=== PATIENT | male | born 1940 | race Caucasian/White ===

== ENCOUNTER 2016-04-22 17:50 | Emergency (ER) | payer MEDICARE, OTHER ==
[~2016-04-22] VITALS: Ht 172.7 cm; Wt 83.2 kg
[2016-04-22] MEDS ORDERED: TETANUS, DIPTHERIA, PERTUSSIS (ADACELL) VACCINE 0.5 ML VIAL IM ONE (18:30)
[2016-04-22] MEDS ORDERED: TETANUS & DIPHTHERIA TOXOIDS (Td) 0.5 ML (DECAVAC) VIAL IM ONE (18:35)
[2016-04-22 18:51] VITALS: BP 146/85
== END 2016-04-22 18:52 | disposition home or self-care (01) ==
LOC: ED 17:52
DX: S01.01XA Laceration without foreign body of scalp, initial encounter (principal); W19.XXXA Unspecified fall, initial encounter; Y92.009 Unspecified place in unspecified non-institutional (private) residence as the place of occurrence of the external cause
CPT/HCPCS: 12002; 64450; 90471; 90715; 99282

== ENCOUNTER → 2016-05-18 | Outpatient (CLI) | payer MEDICARE, OTHER | LOC: LAB 08:47 | PROVIDERS: ATTEND Family Medicine | DX: I48.91 Unspecified atrial fibrillation (principal) | CPT/HCPCS: 36415; 85610 ==